=== PATIENT | male | born 1945 | race Caucasian/White ===

== ENCOUNTER 2017-09-23 17:49 | Inpatient (IN) | payer MEDICARE, MEDICAID ==
[~2017-09-23] VITALS: Ht 5871 cm; Wt 86.0 kg
[~2017-09-23 17:49] MED LIST: ALBU8.5H8 IH; ASPI81TA47 PO; ATOR40TA PO; BACL10TA PO; BUDE10.2 INH; BUPR75TA8 PO; DESI25TA PO; DIPH25TA62 PO; DULO-31 PO; ESOM40CA PO; FLO0.4C PO; GABA-532 PO; HYDR-565 PO; METF10002 PO; NITR0.4T51 SL; OXYB5TAB29 PO; PARO40TA PO; PROP40TA7 PO; TOLT4CAP PO; UMEC62.5 INH; VARE0.5T PO; ZOLP10TA5 PO
[2017-09-23] MEDS ORDERED: methylPREDNISolone sod succ 125mg/2ml vial IV ONE (19:55)
[2017-09-23] MEDS ORDERED: ipratropium/albuterol 3ml nebule NEB ONE (19:55)
[2017-09-23 20:46] LABS: BASOPHILS % (AUTO) 0 % (0-1); EOSINOPHILS # (AUTO) 0.1 X10'3 (0-0.9); EOSINOPHILS % (AUTO) 0.6 % (0-6); HEMATOCRIT 37.1 % (42.0-52.0); HEMOGLOBIN 12.5 g/dl (14.0-17.9); LYMPHOCYTES # (AUTO) 0.9 X10'3 (1.1-4.8); MEAN CORPUSCULAR HEMOGLOBIN 33.3 PG (27.0-31.0); MEAN CORPUSCULAR HGB CONC 33.7 % (33.0-36.5); MEAN CORPUSCULAR VOLUME 98.8 FL (78-98); MEAN PLATELET VOLUME 7.1 FL (7.4-10.4); MONOCYTES # (AUTO) 0.7 X10'3 (0-0.9); MONOCYTES % (AUTO) 6.5 % (2-12); NEUTROPHILS # (AUTO) 9.1 X10'3 (1.8-7.7); NEUTROPHILS % (AUTO) 84.9 % (42-75); PLATELET COUNT 193 X10'3 (140-440); RED BLOOD COUNT 3.75 X10'6 (4.70-6.10); RED CELL DISTRIBUTION WIDTH 13.6 % (11.5-14.5); WHITE BLOOD COUNT 10.7 X10'3 (4.5-11.0)
[2017-09-23 20:59] LABS: PARTIAL THROMBOPLASTIN TIME 29 SECONDS (22-32); PROTHROMBIN TIME 9.9 SECONDS (9.0-12.0)
[2017-09-23] MEDS ORDERED: temazepam 15mg capsule PO PRN (21:00)
[2017-09-23 21:02] LABS: ALANINE AMINOTRANSFERASE 28 U/L (12-78); ALBUMIN 3.3 G/DL (3.4-5.0); ALKALINE PHOSPHATASE 90 IU/L (46-116); ANION GAP 7 (8-16); ASPARTATE AMINO TRANSFERASE 27 U/L (10-37); BILIRUBIN,TOTAL 0.5 MG/DL (0.1-1.0); BLOOD UREA NITROGEN 16 MG/DL (7-18); BUN/CREATININE RATIO 13.7 (5.4-32.0); CALCIUM 8.7 MG/DL (8.5-10.1); CHLORIDE 102 MMOL/L (99-107); CREATININE 1.17 MG/DL (0.60-1.10); GLUCOSE 171 MG/DL (70-104); POTASSIUM 3.7 MMOL/L (3.5-5.1); SODIUM 141 MMOL/L (135-145); TOTAL CARBON DIOXIDE 32.4 MMOL/L (24-32); TOTAL PROTEIN 6.7 G/DL (6.4-8.2); eGFR 62 ML/MIN
[2017-09-23] MEDS ORDERED: mag hydrox/Alum hydrox/simeth 30ml oral suspension PO PRN (22:15)
[2017-09-23] MEDS ORDERED: metoclopramide 5 mg/ml inj IV PRN (22:15)
[2017-09-23] MEDS ORDERED: diphenhydrAMINE 50 mg/ml inj IV PRN (22:15)
[2017-09-23] MEDS ORDERED: bisacodyl 10mg suppository rectal RC PRN (22:15)
[2017-09-23] MEDS ORDERED: acetaminophen 325mg tablet PO PRN (22:15)
[2017-09-23] MEDS ORDERED: HYDROcodone/acetaminophen 10/325mg tab PO PRN ×2 (22:15)
[2017-09-23] MEDS ORDERED: diphenhydrAMINE 25mg capsule PO PRN (22:15)
[2017-09-23] MEDS ORDERED: acetaminophen 650mg rectal suppository RC PRN (22:15)
[2017-09-23] MEDS ORDERED: magnesium hydroxide 30ml (MOM) UD suspension PO PRN (22:15)
[2017-09-23] MEDS ORDERED: HYDROcodone/acetaminophen 5mg/325mg tablet PO PRN (22:15)
[2017-09-23] MEDS ORDERED: ondansetron/PF 4mg/2ml inj IV PRN (22:15)
[2017-09-23] MEDS ORDERED: zolpidem 5mg tablet PO PRN (22:15)
[2017-09-23] MEDS ORDERED: DESIPRAMINE 25 MG PO SCH (22:17)
[2017-09-23] MEDS ORDERED: dextrose 50%-water 50ml dispensing syringe IV PRN ×2 (22:25)
[2017-09-23] MEDS ORDERED: glucagon, human recombinant 1mg kit SUBCUT PRN (22:25)
[2017-09-23] MEDS ORDERED: MESSAGE TO PHARMACY PO ONE (22:25)
[2017-09-23] MEDS ORDERED: dextrose ORAL solution 15 GM/59 ML bottle PO PRN ×2 (22:25)
[2017-09-23 22:39] LABS: HEMOGLOBIN A1C 5.7 % (4.5-6.2)
[2017-09-23 22:46] LABS: MAGNESIUM 2.2 MG/DL (1.5-2.4); PHOSPHORUS 2.5 MG/DL (2.3-4.5)
[2017-09-23] MEDS: normal saline 1000ml 1,000 ML IV SCH (23:01)
[2017-09-23] MEDS: azithromycin 250mg tablet PO SCH (23:04)
[2017-09-23] MEDS: varenicline tartrate 0.5mg tablet PO SCH (23:04)
[2017-09-23 23:22] LABS: CLARITY,URINE CLEAR (Clear); COLOR,URINE YELLOW (Yellow); GLUCOSE, URINE NEGATIVE (Neg); KETONES,URINE NEGATIVE (Neg); LEUKOCYTE ESTERASE ,URINE NEGATIVE (Neg); NITRITES, URINE NEGATIVE (Neg); OCCULT BLOOD,URINE NEGATIVE (Neg); PROTEIN,URINE NEGATIVE (Neg)
[2017-09-23 23:31] LABS: UA COLLECTION TYPE NON-SPECIFIED
[2017-09-24] VITALS: BP 114/60
[2017-09-24] MEDS ORDERED: albuterol 2.5 MG/3 ML nebule NEB PRN (04:45)
[2017-09-24] MEDS ORDERED: diltiazem 5mg/ml 5ml inj. IV ONE (05:45)
[2017-09-24 05:55] VITALS: BP 145/72
[2017-09-24 06:45] VITALS: BP 120/68
[2017-09-24] MEDS: lactobacillus rhamnosus 10,000 MMU CELLS/CAPSULE PO SCH ×2 (07:30→17:38)
[2017-09-24] MEDS: enoxaparin 60mg/0.6ml syringe SUBCUT SCH ×2 (07:54→19:39)
[2017-09-24] MEDS: tamsulosin 0.4mg capsule PO SCH (07:54)
[2017-09-24] MEDS: duloxetine 30mg CAPSULE.DR PO SCH (07:55)
[2017-09-24] MEDS: oxybutynin 5mg tablet PO SCH ×4 (07:55→21:43)
[2017-09-24] MEDS: baclofen 10mg tablet PO SCH ×3 (07:55→21:42)
[2017-09-24] MEDS: propranolol 40mg tablet PO SCH ×3 (07:55→21:44)
[2017-09-24] MEDS: atorvastatin 20mg tablet PO SCH (07:55)
[2017-09-24] MEDS: docusate sod 100mg capsule PO SCH ×2 (07:55→19:55)
[2017-09-24] MEDS: gabapentin 300mg capsule PO SCH ×3 (07:55→21:42)
[2017-09-24] MEDS: aspirin 81mg tablet.DR PO SCH (07:55)
[2017-09-24] MEDS: pantoprazole 40mg Tablet.DR PO SCH (07:55)
[2017-09-24] MEDS ORDERED: non-formulary drug (Esomeprazole Magnesium (Nexium) 1 CAP) PO SCH (08:00)
[2017-09-24] MEDS ORDERED: oxybutynin 5mg tablet PO SCH (08:00)
[2017-09-24] MEDS ORDERED: non-formulary drug (Umeclidinium Bromide (Incruse Ellipta) 1 PUFF) INH SCH (08:00)
[2017-09-24] MEDS: varenicline tartrate 0.5mg tablet PO SCH ×2 (08:00→19:38)
[2017-09-24] MEDS: buPROPion 75mg tablet PO SCH (08:00)
[2017-09-24] MEDS ORDERED: PAROXETINE HCL PO SCH (08:00)
[2017-09-24] MEDS ORDERED: propranolol 40mg tablet PO SCH (08:00)
[2017-09-24] MEDS ORDERED: heparin, porcine 5000 units/ml vial SQ SCH (08:00)
[2017-09-24] MEDS: normal saline 1000ml 1,000 ML IV SCH (08:15)
[2017-09-24 11:16] LABS: BASOPHILS % (AUTO) 0.1 % (0-1); EOSINOPHILS % (AUTO) 0 % (0-6); HEMATOCRIT 31.5 % (42.0-52.0); HEMOGLOBIN 10.5 g/dl (14.0-17.9); LYMPHOCYTES # (AUTO) 0.5 X10'3 (1.1-4.8); LYMPHOCYTES % (AUTO) 6.9 % (21-51); MEAN CORPUSCULAR HEMOGLOBIN 32.9 PG (27.0-31.0); MEAN CORPUSCULAR HGB CONC 33.3 % (33.0-36.5); MEAN CORPUSCULAR VOLUME 98.9 FL (78-98); MONOCYTES # (AUTO) 0.2 X10'3 (0-0.9); MONOCYTES % (AUTO) 2.9 % (2-12); NEUTROPHILS # (AUTO) 6.1 X10'3 (1.8-7.7); NEUTROPHILS % (AUTO) 90.1 % (42-75); PLATELET COUNT 174 X10'3 (140-440); RED BLOOD COUNT 3.19 X10'6 (4.70-6.10); WHITE BLOOD COUNT 6.7 X10'3 (4.5-11.0)
[2017-09-24 11:25] VITALS: BP 106/51
[2017-09-24 11:30] LABS: ALANINE AMINOTRANSFERASE 18 U/L (12-78); ALBUMIN 2.6 G/DL (3.4-5.0); ALBUMIN/GLOBULIN RATIO 0.8 (1.1-1.5); ALKALINE PHOSPHATASE 64 IU/L (46-116); ANION GAP 7 (8-16); ASPARTATE AMINO TRANSFERASE 18 U/L (10-37); BILIRUBIN,TOTAL 0.4 MG/DL (0.1-1.0); BLOOD UREA NITROGEN 17 MG/DL (7-18); BUN/CREATININE RATIO 18.9 (5.4-32.0); CHLORIDE 107 MMOL/L (99-107); GLUCOSE 176 MG/DL (70-104); SODIUM 141 MMOL/L (135-145); TOTAL CARBON DIOXIDE 26.8 MMOL/L (24-32); TOTAL PROTEIN 5.7 G/DL (6.4-8.2); eGFR 84 ML/MIN
[2017-09-24 13:05] VITALS: BP 111/66
[2017-09-24] MEDS: insulin Lispro (HumaLOG) vial - multi-dose SQ SCH ×2 (14:04→19:43)
[2017-09-24] MEDS: methylPREDNISolone sod succ 125mg/2ml vial IV SCH (19:38)
[2017-09-24 20:00] VITALS: BP 113/64
[2017-09-24] MEDS: azithromycin 250mg tablet PO SCH (21:43)
[2017-09-25] VITALS: BP 117/68
[2017-09-25] MEDS: methylPREDNISolone sod succ 125mg/2ml vial IV SCH ×3 (02:13→14:03)
[2017-09-25 05:21] LABS: BASOPHILS % (AUTO) 0 % (0-1); EOSINOPHILS # (AUTO) 0.1 X10'3 (0-0.9); EOSINOPHILS % (AUTO) 0.9 % (0-6); HEMATOCRIT 34.5 % (42.0-52.0); HEMOGLOBIN 11.3 g/dl (14.0-17.9); LYMPHOCYTES # (AUTO) 0.7 X10'3 (1.1-4.8); LYMPHOCYTES % (AUTO) 7.9 % (21-51); MEAN CORPUSCULAR HEMOGLOBIN 32.8 PG (27.0-31.0); MEAN CORPUSCULAR HGB CONC 32.9 % (33.0-36.5); MEAN CORPUSCULAR VOLUME 99.7 FL (78-98); MEAN PLATELET VOLUME 7.4 FL (7.4-10.4); MONOCYTES # (AUTO) 0.2 X10'3 (0-0.9); MONOCYTES % (AUTO) 1.9 % (2-12); NEUTROPHILS # (AUTO) 7.9 X10'3 (1.8-7.7); NEUTROPHILS % (AUTO) 89.3 % (42-75); PLATELET COUNT 181 X10'3 (140-440); RED BLOOD COUNT 3.46 X10'6 (4.70-6.10); WHITE BLOOD COUNT 8.8 X10'3 (4.5-11.0)
[2017-09-25 06:13] LABS: ALANINE AMINOTRANSFERASE 23 U/L (12-78); ALBUMIN 2.8 G/DL (3.4-5.0); ALBUMIN/GLOBULIN RATIO 0.9 (1.1-1.5); ALKALINE PHOSPHATASE 67 IU/L (46-116); ANION GAP 7 (8-16); ASPARTATE AMINO TRANSFERASE 15 U/L (10-37); BILIRUBIN,TOTAL 0.3 MG/DL (0.1-1.0); BLOOD UREA NITROGEN 20 MG/DL (7-18); BUN/CREATININE RATIO 21.3 (5.4-32.0); CALCIUM 8.5 MG/DL (8.5-10.1); CHLORIDE 108 MMOL/L (99-107); CREATININE 0.94 MG/DL (0.60-1.10); GLUCOSE 199 MG/DL (70-104); POTASSIUM 4.5 MMOL/L (3.5-5.1); SODIUM 143 MMOL/L (135-145); TOTAL CARBON DIOXIDE 27.9 MMOL/L (24-32); eGFR 80 ML/MIN
[2017-09-25 07:15] VITALS: BP 123/66
[2017-09-25] MEDS: lactobacillus rhamnosus 10,000 MMU CELLS/CAPSULE PO SCH (07:30)
[2017-09-25] MEDS: atorvastatin 20mg tablet PO SCH (08:00)
[2017-09-25] MEDS ORDERED: metoprolol tartrate 25mg tablet PO SCH (08:00)
[2017-09-25] MEDS: docusate sod 100mg capsule PO SCH (08:00)
[2017-09-25] MEDS: enoxaparin 60mg/0.6ml syringe SUBCUT SCH (09:22)
[2017-09-25] MEDS: aspirin 81mg tablet.DR PO SCH (09:22)
[2017-09-25] MEDS: tamsulosin 0.4mg capsule PO SCH (09:22)
[2017-09-25] MEDS: oxybutynin 5mg tablet PO SCH ×2 (09:23→14:03)
[2017-09-25] MEDS: baclofen 10mg tablet PO SCH ×2 (09:23→14:03)
[2017-09-25] MEDS: varenicline tartrate 0.5mg tablet PO SCH (09:23)
[2017-09-25] MEDS: gabapentin 300mg capsule PO SCH ×2 (09:23→14:03)
[2017-09-25] MEDS: duloxetine 30mg CAPSULE.DR PO SCH (09:23)
[2017-09-25] MEDS: pantoprazole 40mg Tablet.DR PO SCH (09:24)
[2017-09-25] MEDS: buPROPion 75mg tablet PO SCH (09:24)
[2017-09-25] MEDS: insulin Lispro (HumaLOG) vial - multi-dose SQ SCH (09:41)
[2017-09-25 11:00] VITALS: BP 128/74
[2017-09-25] MEDS ORDERED: AZI25OT PO (11:59)
[2017-09-25] MEDS ORDERED: PRED10TA23 PO (11:59)
== END 2017-09-25 15:00 | disposition home health service (06) | DRG 604 ==
LOC: ER 17:50 → ED HOLD 22:15 → CMPBEDREQ 23:56 → SUR 3N 09-24 00:20
PROVIDERS: ADMIT Family Medicine; ATTEND Internal Medicine
DX: S20.212A Contusion of left front wall of thorax, initial encounter (principal); I50.23 Acute on chronic systolic (congestive) heart failure; G93.41 Metabolic encephalopathy; J44.0 Chronic obstructive pulmonary disease with (acute) lower respiratory infection; J44.1 Chronic obstructive pulmonary disease with (acute) exacerbation; E11.65 Type 2 diabetes mellitus with hyperglycemia; I48.0 Paroxysmal atrial fibrillation; Z95.1 Presence of aortocoronary bypass graft; W18.39XA Other fall on same level, initial encounter; I25.10 Atherosclerotic heart disease of native coronary artery without angina pectoris; J20.9 Acute bronchitis, unspecified; R29.6 Repeated falls; F17.200 Nicotine dependence, unspecified, uncomplicated; Z88.2 Allergy status to sulfonamides; Z79.82 Long term (current) use of aspirin; Z79.899 Other long term (current) drug therapy; Z79.84 Long term (current) use of oral hypoglycemic drugs; Z85.118 Personal history of other malignant neoplasm of bronchus and lung; Y93.89 Activity, other specified; Y92.89 Other specified places as the place of occurrence of the external cause; Y99.8 Other external cause status
CPT/HCPCS: 36415; 70450; 71010; 80053; 81003; 82948; 83036; 83605; 83735; 83880; 84100; 85025; 85610; 85730; 87040; 87070; 94640; 94760; 96374; 97162; 99285; J1650; J2930; J3490; J7030

== ENCOUNTER 2019-11-26 07:55 | Emergency (ER) | payer MEDICARE, MEDICAID ==
[~2019-11-26] VITALS: Ht 175.3 cm; Wt 62.7 kg
[~2019-11-26 07:55] MED LIST changes: +AZI25OT PO; -BUPR75TA8 PO; +HYDR-4353 PO; -HYDR-565 PO; +METF-438 PO; -METF10002 PO; -OXYB5TAB29 PO; -PARO40TA PO; -UMEC62.5 INH
[2019-11-26] MEDS ORDERED: ACET-1059 PO (09:02)
[2019-11-26] MEDS ORDERED: LIDOcaine 5% patch TP STA (09:03)
--- NOTE | 2019-11-26 09:10 | NUR ---
Pt tried to get out of bed, stating he was going to walk out of the ED. Pt reoriented to the fact that he was in the ER and that we needed him to get back in bed. Pt assisted back to bed. Pt very unstable on his feet.
--- NOTE | 2019-11-26 09:20 | NUR ---
Pt in radiology.
--- NOTE | 2019-11-26 09:25 | NUR ---
Pt's niece Kaley Butler called for an update on the patient. Let her know that we do not have results yet. She stated that she should be here within the next couple hours.
[2019-11-26 10:39] LABS: BASOPHILS % (AUTO) 0.3 % (0-1); EOSINOPHILS # (AUTO) 0.1 X10'3 (0-0.9); EOSINOPHILS % (AUTO) 1.2 % (0-6); HEMATOCRIT 36.4 % (42.0-52.0); LYMPHOCYTES # (AUTO) 0.9 X10'3 (1.1-4.8); LYMPHOCYTES % (AUTO) 10.2 % (21-51); MEAN CORPUSCULAR HEMOGLOBIN 31.1 PG (27.0-31.0); MEAN CORPUSCULAR HGB CONC 33.1 g/dL (33.0-36.5); MEAN CORPUSCULAR VOLUME 94.1 FL (78-98); MONOCYTES # (AUTO) 0.9 X10'3 (0-0.9); NEUTROPHILS # (AUTO) 6.5 X10'3 (1.8-7.7); NEUTROPHILS % (AUTO) 77.3 % (42-75); PLATELET COUNT 247 X10'3 (140-440); RED BLOOD COUNT 3.86 X10'6 (4.70-6.10); RED CELL DISTRIBUTION WIDTH 14.6 % (11.5-14.5); WHITE BLOOD COUNT 8.4 X10'3 (4.5-11.0)
[2019-11-26 10:51] LABS: ALBUMIN 3.1 G/DL (3.4-5.0); ALBUMIN/GLOBULIN RATIO 0.9 (1.1-1.5); ALKALINE PHOSPHATASE 75 IU/L (46-116); ANION GAP 4 (8-16); ASPARTATE AMINO TRANSFERASE 18 U/L (10-37); BILIRUBIN,TOTAL 0.5 MG/DL (0.1-1.0); BLOOD UREA NITROGEN 15 MG/DL (7-18); BUN/CREATININE RATIO 13.4 (5.4-32.0); CHLORIDE 104 MMOL/L (99-107); CREATININE 1.12 MG/DL (0.60-1.10); GLUCOSE 155 MG/DL (70-104); POTASSIUM 4.3 MMOL/L (3.5-5.1); SODIUM 144 MMOL/L (135-145); TOTAL CARBON DIOXIDE 35.8 MMOL/L (24-32); TOTAL PROTEIN 6.7 G/DL (6.4-8.2); eGFR 64 ML/MIN
[2019-11-26 10:54] LABS: ALANINE AMINOTRANSFERASE < 6 U/L (12-78)
[2019-11-26] MEDS ORDERED: DOXY-243 PO (11:43)
[2019-11-26 12:51] VITALS: BP 120/58
== END 2019-11-26 13:00 | disposition home or self-care (01) ==
LOC: ER 07:56
DX: G20 Parkinson's disease (principal); R07.81 Pleurodynia; J90 Pleural effusion, not elsewhere classified; I10 Essential (primary) hypertension; J44.9 Chronic obstructive pulmonary disease, unspecified; F17.200 Nicotine dependence, unspecified, uncomplicated; E11.9 Type 2 diabetes mellitus without complications; Z85.118 Personal history of other malignant neoplasm of bronchus and lung; Z95.1 Presence of aortocoronary bypass graft; Z98.890 Other specified postprocedural states; Z88.2 Allergy status to sulfonamides; Z79.82 Long term (current) use of aspirin; Z79.2 Long term (current) use of antibiotics; Z79.899 Other long term (current) drug therapy
CPT/HCPCS: 36415; 71101; 80053; 83880; 84145; 84484; 85025; 99285